=== PATIENT | female | born 1970 | race Caucasian/White ===

== ENCOUNTER → 2016-04-07 | Outpatient (CLI) | payer OTHER ==
[2016-01-25 13:36] VITALS: BP 133/85
[~2016-04-07] MED LIST: ACYC400T PO; BENZ200C39 PO; DEXT30CA6 PO; ESCI20TA10 PO; ESTR1TAB15 PO; HYDR-971 PO; LEVO100T PO; LEVO125T PO; LISI-334 PO; MELA3TAB PO; MELO-156 PO; NABU500T PO; NABU750T PO; ONDA4TAB10 PO; ORPH100T PO; OXYC30TA PO; PRED50TA PO; SERT100T PO; SUMA100T3 PO; TOPI25TA32 PO
--- NOTE | 2016-04-08 21:11 | EEG ---
DATE OF SERVICE: 04/07/2016 EEG NUMBER: [id number] OBJECTIVE: This is a 46-year-old female patient with history of memory loss and confusional episodes. EEG was requested to evaluate cerebral activity and help rule out subclinical seizure. METHODS: Twenty electrodes were applied according to the international 10-20 electrode placement system. EEG monitoring, hyperventilation, intermittent photic stimulation, monopolar and bipolar montages are routinely utilized. The record was obtained on a digital system with video monitoring. FINDINGS: 1. Background: The patient was recorded in the awake and drowsy states. No sleep state was recorded. The overall background amplitude is 10-13 microvolts. A posterior dominant rhythm of 8-10 Hz is observed. 2. Abnormalities: No specific epileptiform discharge or electrographic seizure is seen. No focal or diffuse slowing. 3. Activation: Hyperventilation was performed with good efforts and normal response. Intermittent photic stimulation was performed with photic driving. Photoparoxysmal response noted. IMPRESSION: This EEG is a borderline study for the awake and drowsy states. No sleep state was recorded. Photoparoxysmal response noted. No focal, lateralizing, specific epileptiform discharge, or electrographic seizure is seen. CAIT JONES MD DR: JOSIAS/sully JOB#: [id number] / [id number] KATHERINE
== END | disposition home or self-care (01) ==
LOC: RT 10:39
PROVIDERS: ATTEND Psychiatry & Neurology Neurology
DX: R41.3 Other amnesia (principal)
CPT/HCPCS: 95816

== ENCOUNTER 2016-04-15 12:33 | Observation (INO) | payer OTHER ==
[~2016-04-15] VITALS: Ht 170.2 cm; Wt 83.0 kg
[~2016-04-15 12:33] MED LIST changes: -ESTR1TAB15 PO; -LEVO125T PO; -LISI-334 PO; -MELA3TAB PO; -MELO-156 PO; -NABU500T PO; -SERT100T PO; -SUMA100T3 PO; -TOPI25TA32 PO
[2016-04-15 13:30] VITALS: BP 143/94
[2016-04-15 15:00] VITALS: BP 146/89
[2016-04-15] MEDS ORDERED: ONDANSETRON ODT 4 MG TAB.RAPDIS PO PRN (15:00)
[2016-04-15] MEDS ORDERED: HYDROCODONE/APAP 5/325MG TABLET. PO PRN (15:00)
[2016-04-15] MEDS ORDERED: HYDROMORPHONE 2 MG/ML VIAL. IVP PRN ×2 (15:00→15:30)
[2016-04-15] MEDS ORDERED: SUMATRIPTAN SUCCINATE 100 MG TABLET. PO PRN (15:00)
--- NOTE | 2016-04-15 15:23 | PDOC1 ---
History and Physical Date of Admission Date of Admission DATE: 04/15/16 TIME: 15:18 Identification/Chief Complaint Chief Complaint headache Source Source: Chart review, Patient History of Present Illness History of Present Illness sent from Neuro clinic for intractable headache was seen s/p fall in January, concussion, post-concussive syndrome, now with memory difficulties, She follows pain clinic [facility], has sent ENT, s/p barium swallow for neck fullness and sensation she has intractable headache, severe, cannot sit up, better lying flat, no photophobia, no phonophobia she thinks she think 2-3 headaches like this per week also complains of weight gain > 40 lbs few mnonts Past Medical History Cardiovascular: HTN Musculoskeletal: low back pain (and neck pain) ENT: No pertinent hx, Sincusitis Endocrine: No pertinent hx Dermatology: No pertinent hx Family History Family History: No Significant Social History Smoke: No ALCOHOL: none Drugs: None Current Medications Current Medications Current Medications Acetaminophen/ Hydrocodone Bitart (Lortab 5/325) 1 tab PRN Q6HRS PRN PO PAIN; Start 04/15/16 at 15:00 Levothyroxine Sodium (Synthroid) 100 mcg DAILY07 PO ; Start 04/16/16 at 07:00 Ondansetron HCl (Zofran Odt) 4 mg PRN Q8HRS PRN PO NAUSEA/VOMITING; Start at 15:00 Oxycodone HCl (Roxicodone) 30 mg QID PO ; Start 04/15/16 at 17:00 Non-Formulary Medication 1 tab BID PO ; Start 04/15/16 at 21:00; Status UNV Non-Formulary Medication 1 cap TID PO ; Start 04/15/16 at 21:00; Status UNV Non-Formulary Medication 1 cap DAILY PO ; Start 04/16/16 at 09:00; Status UNV Escitalopram Oxalate (Lexapro) 10 mg DAILY PO ; Start 04/15/16 at 16:00 Meloxicam (Mobic) 15 mg DAILY PO ; Start 04/15/16 at 16:00 Non-Formulary Medication 100 mg Q12HR PO ; Start 04/15/16 at 21:00; Status UNV Hydromorphone HCl (Dilaudid) 1 mg PRN Q4HRS PRN IVP PAIN SEVERE; Start 04/15/16 at 15:00 Sumatriptan Succinate (Imitrex) 100 mg PRN Q2HR PRN PO MIGRAINE HEADACHE; Start 04/15/16 at 15:00 Active Scripts Active Zofran Odt (Ondansetron) 4 Mg Tab.rapdis 4 Mg PO Q8HRS PRN Orphenadrine Citrate 100 Mg Tablet.er 100 Mg PO Q12HR [place] 5-325 Tablet (Acetaminophen/Hydrocodone Bitart) 1 Each Tablet 1 Tab PO PRN Q6HRS PRN Benzonatate 200 Mg Capsule 1 Cap PO TID Prednisone 50 Mg Tablet 1 Tab PO DAILY Reported Oxycodone Hcl 30 Mg Tablet 1 Tab PO QID Synthroid (Levothyroxine Sodium) 100 Mcg Tablet 1 Tab PO DAILY Nabumetone 750 Mg Tablet 1 Tab PO BID Acyclovir 400 Mg Tablet 1 Tab PO BID Lexapro (Escitalopram Oxalate) 20 Mg Tablet 1 Tab PO DAILY Adderall Xr 30 Mg Capsule (Dextroamphetamine/Amphetamine) 30 Mg Cap.er.24h 1 Cap PO DAILY Allergies Allergies: Coded Allergies: Tetracyclines (Verified Allergy, Intermediate, RASH, 04/04/15) ROS General: YES: Chills, Malaise, No: Appetite, Fatigue, Night Sweats, Other PSYCHOLOGICAL ROS: YES: Anxiety, Concentration difficultie, Irritablity, No: Behavioral Disorder, Decreased libido, Depression, Disorientation, Hallucinations, Hostility, Memory difficulties, Mood Swings, Obsessive thoughts , Other, Physical abuse, Sexual abuse, Sleep disturbances, Suicidal ideation Eyes: No Blurry vision, No Decreased vision, No Double vision, No Dry eyes, No Excessive tearing, No Eye Pain, No Itchy Eyes, No Loss of vision, No Other, No Photophobia, No Scotomata, No Uses contacts, No Uses glasses HEENT: YES: Other (globus, ), No: Epistaxis, Heacaches, Hearing change, Nasal congestion, Nasal discharge, Oral lesions, Sinus pain, Sneezing, Snoring, Sore Throat, Tinnitus, Vertigo, Visual Changes, Vocal changes Hematological and Lymphatic: No: Bleeding Problems, Blood Clots, Blood Transfusions, Brusing, Night Sweats, Other, Pallor, Swollen Lymph Nodes Respiratory: No: Cough, Hemoptysis, Orthopnea, Other, Pleuritic Pain, SOB with excertion, Shortness of breath, Sputum Changes, Stridor, Tachypnea, Wheezing Cardiovascular: No Chest Pain, No Edema, No Lt Headedness, No Orthopnea, No Other, No Palpitations, No Paroxysmal Noc. Dyspnea Gastrointestinal: Yes Nausea, No Abdominal Pain, No Constipation, No Diarrhea, No Hematochezia, No Melena, No Other, No Vomiting Genitourinary: No , No , No , No , No , No , No , No Discharge, No Dysuria, No Flank Pain, No Frequency, No Hematuria, No Incontinence, No Other, No Pain, No Retention, No Urgency Musculoskeletal: No Gait Disturbance, No Joint Pain, No Joint Stiffness, No Joint Swelling, No Muscle Pain, No Muscular Weakness, No Other, No Pain In:, No Swelling In: Neurological: Yes Confusion, Yes Gait Disturbance, Yes Headaches, Yes Impaired Coord/balance, Yes Memory Loss, No Behavorial Changes, No Bowel/Bladder ControlChng, No Dizziness, No Numbness/Tingling, No Other, No Seizures, No Speech Problems, No Tremors, No Visual Changes, No Weakness Skin: No Acne, No Dry Skin, No Eczema, No Hair Changes, No Lumps, No Mole Changes, No Mottling, No Nail Changes, No Other, No Pruritus, No Rash, No Skin Lesion Changes Physical Exam General: Alert, Oriented X3, Cooperative, mild distress HEENT: Atraumatic, PERRLA Lungs: Clear to auscultation Abdomen: Normal bowel sounds, Soft Rectal Exam: not examined Extremities: No clubbing, No edema Skin: No rashes, No significant lesion Neuro: Normal speech, Normal tone, Sensation intact Psych/Mental Status: Mood NL Vitals Vitals Vital Signs Date Time Temp Pulse Resp B/P Pulse Ox O2 Delivery O2 Flow Rate FiO2 04/15/16 15:00 98.2 72 18 146/89 97 Room Air 98.2 VTE Prophylaxis Ordered VTE Prophylaxis Devices: No VTE Pharmacological Prophylaxi: Yes Assessment/Plan Assessment/Plan intractable headache recent EEG, pending neuro consult try tryptan Percocet PRN new memory problems, concern for anxiety and depression, post concussive syndrome labs RUSSELL FISHER MD Apr 15, 2016 15:23
[2016-04-15 15:31] LABS: BASO % 1 % (0-3); EOS % 1 % (0-3); HEMATOCRIT 42.4 % (36.0-47.0); HEMOGLOBIN 13.9 g/dL (12.0-15.5); LYMPH # 1.4 x10^3/uL (1.0-4.8); LYMPH % 19 % (24-48); MEAN CORPUSCULAR HEMOGLOBIN 29 pg (25-35); MEAN CORPUSCULAR HGB CONC 33 g/dL (31-37); MEAN CORPUSCULAR VOLUME 87 fL (79-100); MONO % 4 % (0-9); NEUT % 75 % (31-73); PLATELET COUNT 263 x10^3/uL (140-400); RED BLOOD COUNT 4.86 x10^6/uL (3.50-5.40); RED CELL DISTRIBUTION WIDTH 14.5 % (11.5-14.5); WHITE BLOOD COUNT 7.1 x10^3/uL (4.0-11.0)
[2016-04-15 15:55] LABS: ALBUMIN 3.8 g/dL (3.4-5.0); ALBUMIN/GLOBULIN RATIO 0.9 (1.0-1.7); CALCIUM 9.4 mg/dL (8.5-10.1); CREATININE 0.7 mg/dL (0.6-1.0); GFR 89.3; POTASSIUM 3.6 mmol/L (3.5-5.1); TOTAL BILIRUBIN 0.5 mg/dL (0.2-1.0); TOTAL PROTEIN 7.9 g/dL (6.4-8.2)
[2016-04-15] MEDS ORDERED: MELOXICAM 7.5 MG TABLET PO SCH (16:00)
[2016-04-15] MEDS ORDERED: ESCITALOPRAM 10 MG TABLET. PO SCH (16:00)
[2016-04-15] MEDS ORDERED: METOPROLOL SUCC 24HR ER 25 MG TAB.ER.24H. PO SCH (16:00)
[2016-04-15] MEDS ORDERED: ZOLPIDEM 5 MG TABLET. PO PRN (16:45)
[2016-04-15] MEDS ORDERED: OXYCODONE IR 30 MG TABLET. PO SCH (17:00)
[2016-04-15 18:13] LABS: BARBITURATES NEG (NEG); BENZODIAZEPINES NEG (NEG); CANNABINOIDS NEG (NEG); COCAINE NEG (NEG); METHADONE NEG (NEG); OPIATES NEG (NEG); PHENCYCLIDINE NEG (NEG)
--- NOTE | 2016-04-15 18:14 | PDOC2 ---
NEUROLOGY CONSULT Date of Admission Date of Admission DATE: 04/15/16 TIME: 18:06 Reason for Consult Reason for Consult: IMPRESSION: Intractable migraine headache. HTN Chronic back pain. Memory decline. RECOMMENDATIONS/PLAN: Pain control. Metoprolol 25 mg daily. Topamax 25 mg bid with titration up. Brain MRI w/wo contrast. HISTORY OF THE PRESENT ILLNESS: 46-y-old female patient with Hx of chronic migraine headaches was seen in Neurology Clinic several weeks ago with complaints of chronic headaches and memory decline. Cognitive evaluation was carried out. She returned to Neurology Clinic today with complaints of severe headaches stating 2 times a week as sharp pain in her entire head rated 10/10. PAST MEDICAL HISTORY: Please see above. PAST SURGERY HISTORY: No major surgery recently. ALLERGY: Reviewed. MEDICATIONS: Refer to [facility] FAMILY HISTORY: Non contributory. SOCIAL HISTORY: Lives at home. Denies illicit drug use. REVIEW OF SYSTEMS: Constitutional: No malnutrition, weight loss, cachexia. Head: No traumatic brain or head injury. Skin: No edema, or rash. Ear: No infection, tinnitus. Eyes: No vision loss or color blindness. Nose: No bleeding or purulent discharges. Hearing: No hearing decrease. Neck: No injury. Breast: No history of cancer, masses,or discharges. Cardiac: No [place], arrhythmia Pulmonary: No COPD. GI: No GI ulcer, GI bleeding. Urinary/genital: NUTI. Endocrinologic: No cousin face, craniofacial dysmorphism, polydactyly, goiter. Skeletomuscular: No muscular atrophy, deformity. Neurological: see HP. Psychiatric: Denies drug use/abuse. Otherwise, not [id number] review of systems. PHYSICAL EXAMINATION: General appearance is in acute distress. HEENT: Normocephalic and nontraumatic. Eyes, nose, ears, and throat are unremarkable. Neck is supple. No lymphadenopathy. No bruits are heard over the carotid artery. No crepitus. Cardiovascular: S1, S2, regular rate and rhythm. Pulmonary: Clear to auscultation bilaterally. Abdomen: Bowel sounds are positive. Abdomen is soft, nontender, and nondistended. Extremities: No rash, lesions, or edema. No restriction of range of motion NEUROLOGICAL EXAMINATION: Alert Oriented to time, place and person. PERRL. EOMI. CN: no focal findings. Muscle tone: within normal. Muscle strength: 5 DTR: 2 Plantar reflex: Flexor response bilaterally Gait: At baseline normal. Sensory exam: no abnormal findings. No cerebellar signs elicited. F-T-N test accurate. Current Medications Current Medications Current Medications Acetaminophen/ Hydrocodone Bitart (Lortab 5/325) 1 tab PRN Q6HRS PRN PO PAIN; Start 04/15/16 at 15:00 Levothyroxine Sodium (Synthroid) 100 mcg DAILY07 PO ; Start 04/16/16 at 07:00 Ondansetron HCl (Zofran Odt) 4 mg PRN Q8HRS PRN PO NAUSEA/VOMITING; Start at 15:00 Oxycodone HCl (Roxicodone) 30 mg QID PO ; Start 04/15/16 at 17:00; Stop 04/15/16 at 17:00; Status DC Acyclovir (Zovirax) 400 mg BID PO ; Start 04/15/16 at 21:00 Non-Formulary Medication 1 cap TID PO ; Start 04/15/16 at 21:00; Status UNV Non-Formulary Medication 1 cap DAILY PO ; Start 04/16/16 at 09:00; Status UNV Escitalopram Oxalate (Lexapro) 10 mg DAILY PO ; Start 04/15/16 at 16:00 Meloxicam (Mobic) 15 mg DAILY PO ; Start 04/15/16 at 16:00 Non-Formulary Medication 100 mg Q12HR PO ; Start 04/15/16 at 21:00; Status UNV Hydromorphone HCl (Dilaudid) 1 mg PRN Q4HRS PRN IVP PAIN SEVERE; Start 04/15/16 at 15:00; Stop 04/15/16 at 15:18; Status DC Sumatriptan Succinate (Imitrex) 100 mg PRN Q2HR PRN PO MIGRAINE HEADACHE Last administered on 04/15/16t 16:31; Start 04/15/16 at 15:00 Hydromorphone HCl (Dilaudid) 0.8 mg PRN Q4HRS PRN IVP PAIN SEVERE; Start at 15:30 Topiramate (Topamax) 25 mg BID PO ; Start 04/15/16 at 21:00 Metoprolol Succinate (Toprol Xl) 25 mg DAILY PO ; Start 04/15/16 at 16:00 Trazodone HCl (Desyrel) 50 mg QHS PO ; Start 04/15/16 at 21:00 Zolpidem Tartrate (Ambien) 5 mg PRN QHS PRN PO INSOMNIA, MAY REPEAT IN 1HR; Start 04/15/16 at 16:45 Active Scripts Active Zofran Odt (Ondansetron) 4 Mg Tab.rapdis 4 Mg PO Q8HRS PRN Orphenadrine Citrate 100 Mg Tablet.er 100 Mg PO Q12HR [place] 5-325 Tablet (Acetaminophen/Hydrocodone Bitart) 1 Each Tablet 1 Tab PO PRN Q6HRS PRN Benzonatate 200 Mg Capsule 1 Cap PO TID Prednisone 50 Mg Tablet 1 Tab PO DAILY Reported Oxycodone Hcl 30 Mg Tablet 1 Tab PO QID Synthroid (Levothyroxine Sodium) 100 Mcg Tablet 1 Tab PO DAILY Nabumetone 750 Mg Tablet 1 Tab PO BID Acyclovir 400 Mg Tablet 1 Tab PO BID Lexapro (Escitalopram Oxalate) 20 Mg Tablet 1 Tab PO DAILY Adderall Xr 30 Mg Capsule (Dextroamphetamine/Amphetamine) 30 Mg Cap.er.24h 1 Cap PO DAILY Allergies Allergies: Coded Allergies: Tetracyclines (Verified Allergy, Intermediate, RASH, 04/04/15) Vitals VITALS Vital Signs Date Time Temp Pulse Resp B/P Pulse Ox O2 Delivery O2 Flow Rate FiO2 04/15/16 15:00 98.2 72 18 146/89 97 Room Air 98.2 Labs Labs Laboratory Tests Test 04/15/16 15:20 White Blood Count 7.1x10^3/uL (4.0-11.0) Red Blood Count 4.86x10^6/uL (3.50-5.40) Hemoglobin 13.9g/dL (12.0-15.5) Hematocrit 42.4% (36.0-47.0) Mean Corpuscular Volume 87fL (79-100) Mean Corpuscular Hemoglobin 29pg (25-35) Mean Corpuscular Hemoglobin Concent 33g/dL (31-37) Red Cell Distribution Width 14.5% (11.5-14.5) Platelet Count 263x10^3/uL (140-400) Neutrophils (%) (Auto) 75% (31-73) Lymphocytes (%) (Auto) 19% (24-48) Monocytes (%) (Auto) 4% (0-9) Eosinophils (%) (Auto) 1% (0-3) Basophils (%) (Auto) 1% (0-3) Neutrophils # (Auto) 5.3x10^3uL (1.8-7.7) Lymphocytes # (Auto) 1.4x10^3/uL (1.0-4.8) Monocytes # (Auto) 0.3x10^3/uL (0.0-1.1) Eosinophils # (Auto) 0.0x10^3/uL (0.0-0.7) Basophils # (Auto) 0.0x10^3/uL (0.0-0.2) Erythrocyte Sedimentation Rate 15 (0-25) Sodium Level 141mmol/L (136-145) Potassium Level 3.6mmol/L (3.5-5.1) Chloride Level 103mmol/L (98-107) Carbon Dioxide Level 30mmol/L (21-32) Anion Gap 8 (6-14) Blood Urea Nitrogen 19mg/dL (7-20) Creatinine 0.7mg/dL (0.6-1.0) Estimated GFR (Cockcroft-Gault) 89.3 BUN/Creatinine Ratio 27 (6-20) Glucose Level 133mg/dL (70-99) Calcium Level 9.4mg/dL (8.5-10.1) Total Bilirubin 0.5mg/dL (0.2-1.0) Aspartate Amino Transf (AST/SGOT) 15U/L (15-37) Alanine Aminotransferase (ALT/SGPT) 21U/L (14-59) Alkaline Phosphatase 74U/L (46-116) Total Protein 7.9g/dL (6.4-8.2) Albumin 3.8g/dL (3.4-5.0) Albumin/Globulin Ratio 0.9 (1.0-1.7) Laboratory Tests Test 04/15/16 15:20 White Blood Count 7.1x10^3/uL (4.0-11.0) Red Blood Count 4.86x10^6/uL (3.50-5.40) Hemoglobin 13.9g/dL (12.0-15.5) Hematocrit 42.4% (36.0-47.0) Mean Corpuscular Volume 87fL (79-100) Mean Corpuscular Hemoglobin 29pg (25-35) Mean Corpuscular Hemoglobin Concent 33g/dL (31-37) Red Cell Distribution Width 14.5% (11.5-14.5) Platelet Count 263x10^3/uL (140-400) Neutrophils (%) (Auto) 75% (31-73) Lymphocytes (%) (Auto) 19% (24-48) Monocytes (%) (Auto) 4% (0-9) Eosinophils (%) (Auto) 1% (0-3) Basophils (%) (Auto) 1% (0-3) Neutrophils # (Auto) 5.3x10^3uL (1.8-7.7) Lymphocytes # (Auto) 1.4x10^3/uL (1.0-4.8) Monocytes # (Auto) 0.3x10^3/uL (0.0-1.1) Eosinophils # (Auto) 0.0x10^3/uL (0.0-0.7) Basophils # (Auto) 0.0x10^3/uL (0.0-0.2) Erythrocyte Sedimentation Rate 15 (0-25) Sodium Level 141mmol/L (136-145) Potassium Level 3.6mmol/L (3.5-5.1) Chloride Level 103mmol/L (98-107) Carbon Dioxide Level 30mmol/L (21-32) Anion Gap 8 (6-14) Blood Urea Nitrogen 19mg/dL (7-20) Creatinine 0.7mg/dL (0.6-1.0) Estimated GFR (Cockcroft-Gault) 89.3 BUN/Creatinine Ratio 27 (6-20) Glucose Level 133mg/dL (70-99) Calcium Level 9.4mg/dL (8.5-10.1) Total Bilirubin 0.5mg/dL (0.2-1.0) Aspartate Amino Transf (AST/SGOT) 15U/L (15-37) Alanine Aminotransferase (ALT/SGPT) 21U/L (14-59) Alkaline Phosphatase 74U/L (46-116) Total Protein 7.9g/dL (6.4-8.2) Albumin 3.8g/dL (3.4-5.0) Albumin/Globulin Ratio 0.9 (1.0-1.7) CAIT JONES MD Apr 15, 2016 18:14
[2016-04-15 18:15] LABS: ETHANOL, URINE NEG (NEG)
[2016-04-15 19:00] VITALS: BP 127/78
[2016-04-15] MEDS ORDERED: NABU500T PO (19:49)
[2016-04-15] MEDS ORDERED: LISI-334 PO (19:49)
[2016-04-15] MEDS ORDERED: LEVO125T PO (19:49)
[2016-04-15] MEDS ORDERED: SERT100T PO (19:49)
[2016-04-15] MEDS ORDERED: ESTR1TAB15 PO (19:49)
[2016-04-15] MEDS ORDERED: MELA3TAB PO (19:49)
[2016-04-15] MEDS ORDERED: GADOBUTROL 7.5 MMOL/7.5 ML VIAL IV ONE (20:00)
[2016-04-15] MEDS ORDERED: traZODone 50 MG TABLET. PO SCH (21:00)
[2016-04-15] MEDS ORDERED: BENZONATATE PO SCH (21:00)
[2016-04-15] MEDS ORDERED: ACYCLOVIR 200 MG CAPSULE PO SCH (21:00)
[2016-04-15] MEDS ORDERED: NON FORMULARY ITEM (Orphenadrine Citrate 100 MG) PO SCH (21:00)
[2016-04-15] MEDS ORDERED: NABUMETONE PO SCH (21:00)
[2016-04-15] MEDS: TOPIRAMATE 25 MG TABLET. PO SCH (21:49)
[2016-04-15 23:00] VITALS: BP 120/74
[2016-04-15] MEDS: ESTRADIOL 1 MG TABLET PO SCH (23:33)
[2016-04-15] MEDS: LISINOPRIL 20 MG TABLET PO SCH (23:34)
[2016-04-15] MEDS: MELOXICAM 7.5 MG TABLET PO SCH (23:34)
[2016-04-16 03:00] VITALS: BP 108/72
[2016-04-16 07:00] VITALS: BP 111/84
[2016-04-16] MEDS ORDERED: LEVOTHYROXINE 100 MCG TABLET PO SCH (07:00)
[2016-04-16] MEDS ORDERED: LEVOTHYROXINE 125 MCG TABLET PO SCH ×2 (07:00→09:00)
--- NOTE | 2016-04-16 08:11 | RAD ---
PROCEDURE Brain MRI with and without contrast. HISTORY Headaches. TECHNIQUE Multiplanar and multi sequence magnetic resonance imaging of the brain was performed prior to and following the administration of 7.5 cc Gadavist intravenous contrast. COMPARISON Head CT dated 01/25/2016. FINDINGS There is no restricted diffusion to suggest acute or subacute infarction. There is no susceptibility effect to suggest hemorrhage. There is no mass effect or midline shift. There is no hydrocephalus. There are a few small focal areas of T2/FLAIR hyperintensity within the cerebral white matter, a nonspecific finding. The orbits are unremarkable. There is a tiny right maxillary sinus mucous retention cyst. The mastoid air cells are unremarkable. There are normal flow voids within the cerebral vessels. No enhancing lesion is seen. IMPRESSION 1. No acute intracranial finding. 2. Few scattered foci of signal change within the cerebral white matter, a nonspecific finding. Given the patient history, this may be due to chronic migraine headaches. The differential also includes chronic small vessel disease. The lesion distribution and configuration does not suggest demyelinating disease. Electronically signed by: Sarai Rosen (Apr 16, 2016 08:09:55)
[2016-04-16] MEDS ORDERED: NON FORMULARY ITEM (Dextroamphetamine/Amphetamine (Adderall Xr 30 Mg Capsule) 1 CAP) PO SCH (09:00)
[2016-04-16] MEDS ORDERED: ACYCLOVIR 200 MG CAPSULE PO SCH (09:00)
[2016-04-16] MEDS ORDERED: LISINOPRIL 20 MG TABLET PO SCH (09:00)
[2016-04-16] MEDS ORDERED: SERTRALINE 50 MG TABLET. PO SCH (09:00)
[2016-04-16] MEDS ORDERED: ESTRADIOL 1 MG TABLET PO SCH (09:00)
[2016-04-16] MEDS: MELOXICAM 7.5 MG TABLET PO SCH (09:51)
[2016-04-16] MEDS: TOPIRAMATE 25 MG TABLET. PO SCH (09:52)
[2016-04-16] MEDS ORDERED: POTASSIUM CHLORIDE 20 MEQ TABLET.ER. PO ONE (10:00)
[2016-04-16 11:00] VITALS: BP 101/73
[2016-04-16] MEDS ORDERED: SUMA100T3 PO (12:18)
[2016-04-16] MEDS ORDERED: MELO-156 PO (12:18)
[2016-04-16] MEDS ORDERED: TOPI25TA32 PO (12:18)
--- NOTE | 2016-04-16 12:22 | PDOC3 ---
Discharge Summary Visit Information Date of Admission: Apr 15, 2016 Date of Discharge: Apr 16, 2016 Admitting Diagnosis: headache Final Diagnosis intractable headache, migranous HTN Chronic back pain. Memory decline. anxiety and depression, recent Hx post concussive syndrome Problems Medical Problems: (1) ? Bipolar disorder Status: Acute (2) Head contusion Status: Acute (3) Migraine headache Status: Acute Brief Hospital Course Allergies Allergies Coded Allergies Type Severity Reaction Last Updated Verified Tetracyclines Allergy Intermediate RASH 04/04/15 Yes Vital Signs Vital Signs Date Time Temp Pulse Resp B/P Pulse Ox O2 Delivery O2 Flow Rate FiO2 04/16/16 11:00 98.0 73 18 101/73 95 Room Air 98.0 Lab Results Laboratory Tests Test 04/15/16 15:20 04/15/16 17:55 White Blood Count 7.1x10^3/uL (4.0-11.0) Red Blood Count 4.86x10^6/uL (3.50-5.40) Hemoglobin 13.9g/dL (12.0-15.5) Hematocrit 42.4% (36.0-47.0) Mean Corpuscular Volume 87fL (79-100) Mean Corpuscular Hemoglobin 29pg (25-35) Mean Corpuscular Hemoglobin Concent 33g/dL (31-37) Red Cell Distribution Width 14.5% (11.5-14.5) Platelet Count 263x10^3/uL (140-400) Neutrophils (%) (Auto) 75% (31-73) Lymphocytes (%) (Auto) 19% (24-48) Monocytes (%) (Auto) 4% (0-9) Eosinophils (%) (Auto) 1% (0-3) Basophils (%) (Auto) 1% (0-3) Neutrophils # (Auto) 5.3x10^3uL (1.8-7.7) Lymphocytes # (Auto) 1.4x10^3/uL (1.0-4.8) Monocytes # (Auto) 0.3x10^3/uL (0.0-1.1) Eosinophils # (Auto) 0.0x10^3/uL (0.0-0.7) Basophils # (Auto) 0.0x10^3/uL (0.0-0.2) Erythrocyte Sedimentation Rate 15 (0-25) Sodium Level 141mmol/L (136-145) Potassium Level 3.6mmol/L (3.5-5.1) Chloride Level 103mmol/L (98-107) Carbon Dioxide Level 30mmol/L (21-32) Anion Gap 8 (6-14) Blood Urea Nitrogen 19mg/dL (7-20) Creatinine 0.7mg/dL (0.6-1.0) Estimated GFR (Cockcroft-Gault) 89.3 BUN/Creatinine Ratio 27 (6-20) Glucose Level 133mg/dL (70-99) Calcium Level 9.4mg/dL (8.5-10.1) Total Bilirubin 0.5mg/dL (0.2-1.0) Aspartate Amino Transf (AST/SGOT) 15U/L (15-37) Alanine Aminotransferase (ALT/SGPT) 21U/L (14-59) Alkaline Phosphatase 74U/L (46-116) Total Protein 7.9g/dL (6.4-8.2) Albumin 3.8g/dL (3.4-5.0) Albumin/Globulin Ratio 0.9 (1.0-1.7) Urine Opiates Screen Neg (NEG) Urine Methadone Screen Neg (NEG) Urine Barbiturates Neg (NEG) Urine Phencyclidine Screen Neg (NEG) Urine Amphetamine/Methamphetamine Neg (NEG) Urine Benzodiazepines Screen Neg (NEG) Urine Cocaine Screen Neg (NEG) Urine Cannabinoids Screen Neg (NEG) Urine Ethyl Alcohol Neg (NEG) Laboratory Tests Test 04/15/16 15:20 04/15/16 17:55 White Blood Count 7.1x10^3/uL (4.0-11.0) Red Blood Count 4.86x10^6/uL (3.50-5.40) Hemoglobin 13.9g/dL (12.0-15.5) Hematocrit 42.4% (36.0-47.0) Mean Corpuscular Volume 87fL (79-100) Mean Corpuscular Hemoglobin 29pg (25-35) Mean Corpuscular Hemoglobin Concent 33g/dL (31-37) Red Cell Distribution Width 14.5% (11.5-14.5) Platelet Count 263x10^3/uL (140-400) Neutrophils (%) (Auto) 75% (31-73) Lymphocytes (%) (Auto) 19% (24-48) Monocytes (%) (Auto) 4% (0-9) Eosinophils (%) (Auto) 1% (0-3) Basophils (%) (Auto) 1% (0-3) Neutrophils # (Auto) 5.3x10^3uL (1.8-7.7) Lymphocytes # (Auto) 1.4x10^3/uL (1.0-4.8) Monocytes # (Auto) 0.3x10^3/uL (0.0-1.1) Eosinophils # (Auto) 0.0x10^3/uL (0.0-0.7) Basophils # (Auto) 0.0x10^3/uL (0.0-0.2) Erythrocyte Sedimentation Rate 15 (0-25) Sodium Level 141mmol/L (136-145) Potassium Level 3.6mmol/L (3.5-5.1) Chloride Level 103mmol/L (98-107) Carbon Dioxide Level 30mmol/L (21-32) Anion Gap 8 (6-14) Blood Urea Nitrogen 19mg/dL (7-20) Creatinine 0.7mg/dL (0.6-1.0) Estimated GFR (Cockcroft-Gault) 89.3 BUN/Creatinine Ratio 27 (6-20) Glucose Level 133mg/dL (70-99) Calcium Level 9.4mg/dL (8.5-10.1) Total Bilirubin 0.5mg/dL (0.2-1.0) Aspartate Amino Transf (AST/SGOT) 15U/L (15-37) Alanine Aminotransferase (ALT/SGPT) 21U/L (14-59) Alkaline Phosphatase 74U/L (46-116) Total Protein 7.9g/dL (6.4-8.2) Albumin 3.8g/dL (3.4-5.0) Albumin/Globulin Ratio 0.9 (1.0-1.7) Urine Opiates Screen Neg (NEG) Urine Methadone Screen Neg (NEG) Urine Barbiturates Neg (NEG) Urine Phencyclidine Screen Neg (NEG) Urine Amphetamine/Methamphetamine Neg (NEG) Urine Benzodiazepines Screen Neg (NEG) Urine Cocaine Screen Neg (NEG) Urine Cannabinoids Screen Neg (NEG) Urine Ethyl Alcohol Neg (NEG) Brief Hospital Course Ms. Foreman is a 46 old sent from Neuro clinic for intractable headache was seen s/p fall in January, concussion, post-concussive syndrome, now with memory difficulties, [place] better s/p imitrex topamax started, will titrate up MRI OK, some small white matter changes, maybe microvascular dz Discharge Information Condition at Discharge: Improved Follow Up: Weeks Disposition/Orders: D/C to Home Scheduled Acyclovir (Acyclovir) 1 TAB PO DAILY (Reported) Estradiol (Estradiol) 1 TAB PO DAILY (Reported) Levothyroxine Sodium (Synthroid) 1 TAB PO DAILY (Reported) Lisinopril (Lisinopril) 1 TAB PO DAILY (Reported) Nabumetone (Nabumetone) 400 MG PO BID (Reported) Sertraline Hcl (Zoloft) 1 TAB PO DAILY (Reported) Scheduled PRN Melatonin (Melatonin) 1 TAB PO PRN QHS PRN PRN INSOMNIA (Reported) Patient Instructions Patient Instructions time > 30 min f/u Dr. Thomas, she will titrate up the topamax RUSSELL FISHER MD Apr 16, 2016 12:22
[2016-04-16] MEDS: ESTRADIOL 1 MG TABLET PO SCH (12:50)
[2016-04-16 12:51] VITALS: BP 103/73
[2016-04-16] MEDS: LISINOPRIL 20 MG TABLET PO SCH (12:51)
--- NOTE | 2016-04-16 14:54 | PDOC ---
PROGRESS NOTES Assessment Assessment Intractable migraine headache. HTN Chronic neck and back pain. Memory decline. RECOMMENDATIONS/PLAN: Pain control. Metoprolol 25 mg daily. Topamax 25 mg bid week1, 25 mg am and 50 mg pm week 2, 50 mg bid thereafter. FU with PCP. See Dr Haynes, outpatient [place]. FU with neurology in 4-6 weeks. Brain MRI w/wo contrast. No acute abnormal findings. HISTORY OF THE PRESENT ILLNESS: 46-y-old female patient with Hx of chronic migraine headaches was seen in Neurology Clinic several weeks ago with complaints of chronic headaches and memory decline. Cognitive evaluation was carried out. She returned to Neurology Clinic today with complaints of severe headaches stating 2 times a week as sharp pain in her entire head rated 10/10. Headaches significantly improved on 04/16. PAST MEDICAL HISTORY: Please see above. PAST SURGERY HISTORY: No major surgery recently. ALLERGY: Reviewed. MEDICATIONS: Refer to [facility] FAMILY HISTORY: Non contributory. SOCIAL HISTORY: Lives at home. Denies illicit drug use. REVIEW OF SYSTEMS: Constitutional: No malnutrition, weight loss, cachexia. Head: No traumatic brain or head injury. Skin: No edema, or rash. Ear: No infection, tinnitus. Eyes: No vision loss or color blindness. Nose: No bleeding or purulent discharges. Hearing: No hearing decrease. Neck: No injury. Breast: No history of cancer, masses,or discharges. Cardiac: No IL, arrhythmia Pulmonary: No COPD. GI: No GI ulcer, GI bleeding. Urinary/genital: NUTI. Endocrinologic: No cousin face, craniofacial dysmorphism, polydactyly, goiter. Skeletomuscular: No muscular atrophy, deformity. Neurological: see HP. Psychiatric: Denies drug use/abuse. Otherwise, not [id number] review of systems. PHYSICAL EXAMINATION: General appearance is in no acute distress. HEENT: Normocephalic and nontraumatic. Eyes, nose, ears, and throat are unremarkable. Neck is supple. No lymphadenopathy. No bruits are heard over the carotid artery. No crepitus. Cardiovascular: S1, S2, regular rate and rhythm. Pulmonary: Clear to auscultation bilaterally. Abdomen: Bowel sounds are positive. Abdomen is soft, nontender, and nondistended. Extremities: No rash, lesions, or edema. No restriction of range of motion NEUROLOGICAL EXAMINATION: Alert Oriented to time, place and person. PERRL. EOMI. CN: no focal findings. Muscle tone: within normal. Muscle strength: 5 DTR: 2 Plantar reflex: Flexor response bilaterally Gait: At baseline normal. Sensory exam: no abnormal findings. No cerebellar signs elicited. F-T-N test accurate. Objective Objective Vital Signs Date Time Temp Pulse Resp B/P Pulse Ox O2 Delivery O2 Flow Rate FiO2 04/16/16 12:51 73 103/73 04/16/16 11:00 98.0 18 95 Room Air 98.0 Intake and Output 04/16/16 07:00 Intake Total 1000 ml Output Total 1450 ml Balance -450 ml Intake Oral 1000 ml Output Urine Total 1450 ml Vitals Signs Vitals VS - Last 72 Hours, by Label Date Time Temp Pulse Resp B/P Pulse Ox O2 Delivery O2 Flow Rate FiO2 04/16/16 12:51 73 103/73 04/16/16 11:00 98.0 73 18 101/73 95 Room Air 98.0 04/16/16 07:00 98.2 69 18 111/84 96 Room Air 98.2 04/16/16 03:00 98.1 79 18 108/72 95 Room Air 98.1 04/15/16 23:34 120/74 04/15/16 23:00 98.0 73 18 120/74 96 Room Air 98.0 04/15/16 20:00 Room Air 04/15/16 19:00 98.1 71 17 127/78 94 Room Air 98.1 04/15/16 15:00 98.2 72 18 146/89 97 Room Air 98.2 04/15/16 14:00 Room Air 04/15/16 13:30 98.0 68 20 143/94 99 Room Air 98.0 04/15/16 13:30 98.0 68 20 143/94 99 Room Air 98.0 Laboratory Laboratory Laboratory Tests Test 04/15/16 15:20 04/15/16 17:55 White Blood Count 7.1x10^3/uL (4.0-11.0) Red Blood Count 4.86x10^6/uL (3.50-5.40) Hemoglobin 13.9g/dL (12.0-15.5) Hematocrit 42.4% (36.0-47.0) Mean Corpuscular Volume 87fL (79-100) Mean Corpuscular Hemoglobin 29pg (25-35) Mean Corpuscular Hemoglobin Concent 33g/dL (31-37) Red Cell Distribution Width 14.5% (11.5-14.5) Platelet Count 263x10^3/uL (140-400) Neutrophils (%) (Auto) 75% (31-73) Lymphocytes (%) (Auto) 19% (24-48) Monocytes (%) (Auto) 4% (0-9) Eosinophils (%) (Auto) 1% (0-3) Basophils (%) (Auto) 1% (0-3) Neutrophils # (Auto) 5.3x10^3uL (1.8-7.7) Lymphocytes # (Auto) 1.4x10^3/uL (1.0-4.8) Monocytes # (Auto) 0.3x10^3/uL (0.0-1.1) Eosinophils # (Auto) 0.0x10^3/uL (0.0-0.7) Basophils # (Auto) 0.0x10^3/uL (0.0-0.2) Erythrocyte Sedimentation Rate 15 (0-25) Sodium Level 141mmol/L (136-145) Potassium Level 3.6mmol/L (3.5-5.1) Chloride Level 103mmol/L (98-107) Carbon Dioxide Level 30mmol/L (21-32) Anion Gap 8 (6-14) Blood Urea Nitrogen 19mg/dL (7-20) Creatinine 0.7mg/dL (0.6-1.0) Estimated GFR (Cockcroft-Gault) 89.3 BUN/Creatinine Ratio 27 (6-20) Glucose Level 133mg/dL (70-99) Calcium Level 9.4mg/dL (8.5-10.1) Total Bilirubin 0.5mg/dL (0.2-1.0) Aspartate Amino Transf (AST/SGOT) 15U/L (15-37) Alanine Aminotransferase (ALT/SGPT) 21U/L (14-59) Alkaline Phosphatase 74U/L (46-116) Total Protein 7.9g/dL (6.4-8.2) Albumin 3.8g/dL (3.4-5.0) Albumin/Globulin Ratio 0.9 (1.0-1.7) Urine Opiates Screen Neg (NEG) Urine Methadone Screen Neg (NEG) Urine Barbiturates Neg (NEG) Urine Phencyclidine Screen Neg (NEG) Urine Amphetamine/Methamphetamine Neg (NEG) Urine Benzodiazepines Screen Neg (NEG) Urine Cocaine Screen Neg (NEG) Urine Cannabinoids Screen Neg (NEG) Urine Ethyl Alcohol Neg (NEG) Medication Medications Current Medications Acetaminophen/ Hydrocodone Bitart (Lortab 5/325) 1 tab PRN Q6HRS PRN PO PAIN; Start 04/15/16 at 15:00 Acyclovir (Zovirax) 400 mg BID PO ; Start 04/15/16 at 21:00; Stop 04/15/16 at 22: 16; Status DC Acyclovir (Zovirax) 400 mg DAILY PO Last administered on 04/16/16 09:52; Start 04/16/16 at 09:00 Escitalopram Oxalate (Lexapro) 10 mg DAILY PO ; Start 04/15/16 at 16:00; Stop 04/15/16 at 19:55; Status DC Estradiol (Estrace) 1 mg DAILY PO ; Start 04/16/16 at 09:00; Stop 04/16/16 at 09: 00; Status DC Estradiol (Estrace) 1 mg DAILYWLUN PO Last administered on 04/16/16 12:50; Start 04/15/16 at 22:30 Gadobutrol (Gadavist) 7.5 mmol 1X ONCE IV Last administered on 04/15/16 20:09 ; Start 04/15/16 at 20:00; Stop 04/15/16 at 20:01; Status DC Hydromorphone HCl (Dilaudid) 0.8 mg PRN Q4HRS PRN IVP PAIN SEVERE; Start at 15:30 Hydromorphone HCl (Dilaudid) 1 mg PRN Q4HRS PRN IVP PAIN SEVERE; Start 04/15/16 at 15:00; Stop 04/15/16 at 15:18; Status DC Levothyroxine Sodium (Synthroid) 100 mcg DAILY07 PO ; Start 04/16/16 at 07:00; Status Cancel Levothyroxine Sodium (Synthroid) 125 mcg DAILY PO ; Start 04/16/16 at 09:00; Stop 04/16/16 at 09:00; Status DC Levothyroxine Sodium (Synthroid) 125 mcg DAILY07 PO Last administered on 06:21; Start 04/16/16 at 07:00 Lisinopril (Prinivil) 20 mg DAILY PO ; Start 04/16/16 at 09:00; Stop 04/16/16 at 09:00; Status DC Lisinopril (Prinivil) 20 mg DAILYWLUN PO Last administered on 04/16/16 12:51; Start 04/15/16 at 22:30 Meloxicam (Mobic) 15 mg BID94 PO Last administered on 04/16/16 09:51; Start 04/15/16 at 22:30 Meloxicam (Mobic) 15 mg DAILY PO ; Start 04/15/16 at 16:00; Stop 04/15/16 at 22:16 ; Status DC Metoprolol Succinate (Toprol Xl) 25 mg DAILY PO ; Start 04/15/16 at 16:00; Stop 04/15/16 at 19:55; Status DC Non-Formulary Medication 1 cap DAILY PO ; Start 04/16/16 at 09:00; Status UNV Non-Formulary Medication 1 cap TID PO ; Start 04/15/16 at 21:00; Status UNV Non-Formulary Medication 100 mg Q12HR PO ; Start 04/15/16 at 21:00; Status UNV Non-Formulary Medication 400 mg BID PO ; Start 04/15/16 at 21:00; Status UNV Ondansetron HCl (Zofran Odt) 4 mg PRN Q8HRS PRN PO NAUSEA/VOMITING; Start at 15:00 Oxycodone HCl (Roxicodone) 30 mg QID PO ; Start 04/15/16 at 17:00; Stop 04/15/16 at 17:00; Status DC Potassium Chloride (Klor-Con) 20 meq 1X ONCE PO Last administered on 04/16/16 12:50; Start 04/16/16 at 10:00; Stop 04/16/16 at 10:14; Status DC Sertraline HCl (Zoloft) 100 mg DAILY PO Last administered on 04/16/16 09:51; Start 04/16/16 at 09:00 Sumatriptan Succinate (Imitrex) 100 mg PRN Q2HR PRN PO MIGRAINE HEADACHE Last administered on 04/15/16 16:31; Start 04/15/16 at 15:00 Topiramate (Topamax) 25 mg BID PO Last administered on 04/16/16 09:52; Start at 21:00 Trazodone HCl (Desyrel) 50 mg QHS PO Last administered on 04/15/16 21:49; Start 04/15/16 at 21:00 Zolpidem Tartrate (Ambien) 5 mg PRN QHS PRN PO INSOMNIA, MAY REPEAT IN 1HR; Start 04/15/16 at 16:45 Comment Review of Relevant I have reviewed the following items radha (where applicable) has been applied. CAIT JONES MD Apr 16, 2016 14:54
== END 2016-04-16 15:10 | disposition home or self-care (01) ==
LOC: INTOOBSV 13:14 → 4 NORTH 13:14
PROVIDERS: ADMIT Internal Medicine; ATTEND Internal Medicine
DX: G43.919 Migraine, unspecified, intractable, without status migrainosus (principal); S00.93XA Contusion of unspecified part of head, initial encounter; F31.9 Bipolar disorder, unspecified; F41.9 Anxiety disorder, unspecified; G89.29 Other chronic pain; I10 Essential (primary) hypertension; X58.XXXA Exposure to other specified factors, initial encounter; Y92.89 Other specified places as the place of occurrence of the external cause; Y93.89 Activity, other specified; Y99.8 Other external cause status; Z91.81 History of falling; Z79.899 Other long term (current) drug therapy
CPT/HCPCS: 36415; 70553; 80053; 85027; 85651; 96374; G0378; G0379; G0481; A9585

== ENCOUNTER → 2016-09-23 | Outpatient (CLI) | payer OTHER ==
[~2016-09-23] MED LIST changes: -BENZ200C39 PO; +BENZ200C47 PO; +DICL100T PO; -ESCI20TA10 PO; +ESTR1TAB15 PO; +LEVO125T PO; +LEXAPRO20 MG PO; +LISI-334 PO; +LOSA50TA6 PO; +MELA3TAB2 PO; +MELO7.5T29 PO; +NABU500T PO; +SERT100T PO; +SUMA100T3 PO; +TOPI25TA52 PO
== END | disposition home or self-care (01) ==
LOC: SURGPAT 10:05
PROVIDERS: ATTEND Neurological Surgery
DX: M54.16 Radiculopathy, lumbar region (principal)
CPT/HCPCS: 36415; 87641

== ENCOUNTER 2016-09-29 11:12 | Day surgery (SDC) | payer OTHER ==
[~2016-09-29 11:12] MED LIST changes: +BACITRACIN 50,000 UNIT in IV NORMAL SALINE 1000ML BAG 1,000 ML IRR ONE; +BUPIVAC MPF-EPI 0.5%-1:200000 30 ML VIAL. ONE; +BUPIVACAINE MPF 0.5% 30 ML VIAL. ONE; +DEXAMETHASONE SOD PHOS 20 MG/5 ML VIAL. ONE; +GELATIN SPONGE SIZE 100. ONE; +IV RINGERS,LACTATED 1000ML 1,000 ML IV SCH; +LIDOCAINE 1% 1 ML SYRINGE. ID PRN; +LIDOCAINE 2% PF Vial for OR 5 ML VIAL. ONE; +ONDANSETRON PF 4 MG/2 ML VIAL. IV PRN; +ONDANSETRON PF 4 MG/2 ML VIAL. ONE; +PHENYLEPHRINE in 0.9% NACL PF 1 MG/10 ML DISP.SYRIN. IV ONE; +PROCHLORPERAZINE 10 MG/2 ML VIAL. IV PRN; +PROPOFOL 20 ML IV ONE; +PROPOFOL 50 ML IV ONE; +REMIFENTANIL 2 MG VIAL. IV ONE; +THROMBIN TOPICAL 20,000 UNIT SPRAY.SYRN KIT TP ONE; +ePHEDrine PF IN SALINE 50 MG/5 ML DISP.SYRIN IV ONE; +fentaNYL PF VIAL 100 MCG/2 ML VIAL IV PRN; +fentaNYL PF VIAL 100 MCG/2 ML VIAL ONE
[2016-09-29 12:14] LABS: INR 1.1 (0.8-1.1); PROTHROMBIN TIME PATIENT 13.3 SEC (11.7-14.0)
[2016-09-29] MEDS ORDERED: MINERAL OIL/PETROLATUM,WHITE OPHTH OINT 3.5GM TUBE. ONE (12:17)
[2016-09-29] MEDS ORDERED: MIDAZOLAM HCL/PF 2 MG/2 ML VIAL. ONE (12:19)
[2016-09-29] MEDS ORDERED: PROPOFOL 50 ML IV ONE (14:30)
[2016-09-29] MEDS ORDERED: PROCHLORPERAZINE 10 MG/2 ML VIAL. ONE (15:03)
[2016-09-29] MEDS ORDERED: fentaNYL PF VIAL 100 MCG/2 ML VIAL ONE ×2 (15:03→15:22)
--- NOTE | 2016-09-29 15:16 | DISCH ---
DISCHARGE INSTRUCTIONS Condition on Discharge Condition on Discharge: Stable Activity After Discharge Activity Instructions for Disc: Avoid exertion, Progressive ambulation, Other, see below (no lifting more than 10lbs; avoid strenuous activity; no excess twisting or bending) Lifting Instructions after Dis: Do not lift >10 pounds Driving Instructions after Dis: No driving for 2 weeks Wound Incision Care Wound/Incision Care: Ice to area for comfort, Other, see below (may remove dressing day 3 after surgery; keep incision clean and dry; do not soak, scrub, or submerge incision) Contacting the after DC Call your doctor for: Concerns you may have Follow-Up Follow up with: Dr. Powell, neurosurgery, in two weeks [phone] ALEXIS POWELL MD Sep 29, 2016 15:16
[2016-09-29] MEDS: fentaNYL PF VIAL 100 MCG/2 ML VIAL IV PRN ×4 (15:25→16:06)
--- NOTE | 2016-09-29 15:25 | PDOC ---
BRIEF OPERATIVE NOTE Date: Sep 29, 2016 Pre-Op Diagnosis lumbar disk herniation, lumbar radiculopathy Post-Op Diagnosis same Procedure Performed left L2-3 hemilaminotomy with discectomy Surgeon Yuli Supervisor Vacuum Metalizing none Anesthesiologist Susy Anesthesia Type: General Blood Loss 20mL Specimens Obtained disk and decompression Findings prominent disk herniation on the left L2-3 with mass effect on the adjacent neural elements, neuromonitoring at least baseline with some reported improvement at the completion of the procedure Complications none apparent ALEXIS POWELL MD Sep 29, 2016 15:25
[2016-09-29] MEDS ORDERED: OXYC-323 PO ×2 (15:33→15:38)
[2016-09-29] MEDS ORDERED: METH-38 PO ×2 (15:34→15:37)
[2016-09-29] MEDS ORDERED: SENN8.6T11 PO (15:35)
[2016-09-29] MEDS ORDERED: SENN1TAB7 PO (15:37)
[2016-09-29] MEDS ORDERED: oxyCODONE/APAP 5/325 1 TAB TABLET PO ONE (16:00)
[2016-09-29 16:16] VITALS: BP 121/77
[2016-09-29] MEDS ORDERED: ACYCLOVIR 200 MG CAPSULE. PO SCH (17:00)
[2016-09-29] MEDS ORDERED: LOSARTAN POTASSIUM 50 MG TABLET. PO SCH (17:00)
[2016-09-29] MEDS ORDERED: DICLOFENAC SODIUM 25 MG TABLET.DR PO SCH (21:00)
[2016-09-30] MEDS ORDERED: LEVOTHYROXINE 125 MCG TABLET PO SCH (07:00)
--- NOTE | 2016-09-30 11:40 | OP ---
DATE OF SURGERY: 09/29/2016 SURGEON: Emerson Powell MD. MARINE CARGO SPECIALIST: None. PREOPERATIVE DIAGNOSIS: Herniated disk on left at lumbar 2-3 with lumbar radiculopathy. POSTOPERATIVE DIAGNOSIS: Herniated disk on left at lumbar 2-3 with lumbar radiculopathy. PROCEDURE: Left lumbar 2-3 hemilaminotomy with diskectomy. ANESTHESIA: General. COMPLICATIONS: None intraprocedurally. INDICATIONS FOR THE PROCEDURE: The patient is a 46-year-old female with paresthesia and radiculopathy related to a herniated disk on the left at lumbar 2-3. She has been refractory to multiple nonsurgical treatments. It was felt that surgical decompression may be of benefit. Please refer to the patient's chart for additional details. DESCRIPTION OF PROCEDURE: After informed consent was obtained, the patient was brought into the operating room. She was placed under general anesthesia. She was placed in prone position on Enri frame. Neuro monitoring was instituted and baseline potentials were obtained. All pressure points were checked and padded appropriately. The lumbar region was prepped and draped in the usual sterile fashion. An incision location was localized with fluoroscopy prior to the initiation of the procedure. A vertical incision centered over the region of lumbar 2-3 was made with a 10 blade scalpel. Monopolar electrocautery was utilized to dissect the avascular midline to the spinous processes of lumbar 2, lumbar 3, and leftward across the lamina at this location. The level was again verified with fluoroscopy prior to the initiation of decompression. A hemilaminotomy was performed on the left at lumbar 2-3 with a pneumatic drill as well as a Kerrison rongeur. The underlying ligament was dissected free from the neural elements with a Acadia and a blunt nerve hook and removed with a Kerrison rongeur. The underlying neural elements were gently retracted medially and a prominent annulus was identified. The annulus was cauterized with bipolar electrocautery and a small annulotomy was performed at lumbar 2-3 with an 11 blade scalpel. Disk material emerged under pressure and was removed in a piecemeal fashion with a pituitary rongeur. Additional disk material was gently teased posterolaterally and removed with pituitary rongeur. Upon completion of diskectomy, the adjacent neural elements were noted to be very well decompressed. This was verified with direct visualization as well as gentle palpation with a Hola and a Jurado ball. It was also noted that neuro monitoring potentials were somewhat improved compared to baseline at this location. Pristine hemostasis was achieved with generous irrigation and some minimal use of bipolar electrocautery. Also the wound was generously irrigated with antibiotic irrigation prior to final closure. The muscles and fascia were then reapproximated with 0 Vicryl in a simple interrupted fashion. Subcutaneous tissues were reapproximated with 2-0 Vicryl in an interrupted inverted fashion and the skin was reapproximated with 4-0 Vicryl in a running subcuticular fashion. Mastisol and Steri-Strips were applied and the wound was dressed with Telfa and Tegaderm. At the end of procedure, all needle and sponge counts were correct x 2. The patient was extubated in the operating room and taken to recovery in stable condition. There were no intraprocedural complications apparent. EMERSON POWELL MD DR: NATALEE/sully JOB#: [id number] / [id number]
--- NOTE | 2016-10-01 16:43 | PATHOLOGY ---
PATHOLOGY REPORT * * * * * * * * FINAL DIAGNOSIS: Segments of fibrocartilaginous tissue and bone, lumbar disc and decompression: - Degenerative changes of fibrocartilaginous tissue. COMMENT: There is no evidence of an acute inflammatory process or malignancy. (JPM:mgr; 10/01/2016) REPORT ELECTRONICALLY SIGNED BY: Quan Joyner M.D. DATE/TIME: 10/01/2016 16:42 * * * * * * * * GROSS PATHOLOGY: Received in formalin labeled "Chapis Foreman, lumbar disc and decompression" are multiple segments of danielle, rubbery, and gritty tissue admixed with bone. The specimen measures 2.8 x 2.5 x 0.5 cm in aggregate dimensions. The tissue is submitted entirely in cassette A1, following decalcification. (JPM; 09/30/16) INITIAL CPT CODE(S): A; 81404, 44847 Professional services performed [place] [facility] [place] [address] Technical services performed by [facility] at [address] [place] [address]. SPECIMEN(S) RECEIVED: A.Lumbar disc and decompression CLINICAL HISTORY: Lumbar radiculopathy PATIENT: CHAPIS FOREMAN /AGE: 1202/07/1970 (Age: 46) PATIENT #: [id number] ALT CASE #: SPECIMEN COLLECTION DATE: 09/29/2016 SPECIMEN RECEIVED DATE: 09/30/2016 [facility] - [address] [place] [address] - PHONE: [phone] * * * END OF REPORT * * *
== END 2016-09-29 16:38 | disposition home or self-care (01) ==
LOC: SURG 11:12
PROVIDERS: ATTEND Neurological Surgery
DX: M51.16 Intervertebral disc disorders with radiculopathy, lumbar region (principal); I10 Essential (primary) hypertension; K21.9 Gastro-esophageal reflux disease without esophagitis; E66.9 Obesity, unspecified; Z68.42 Body mass index [BMI] 45.0-49.9, adult; E03.9 Hypothyroidism, unspecified; M19.90 Unspecified osteoarthritis, unspecified site; F41.9 Anxiety disorder, unspecified; F32.9 Major depressive disorder, single episode, unspecified; Z90.710 Acquired absence of both cervix and uterus; Z86.69 Personal history of other diseases of the nervous system and sense organs; Z87.440 Personal history of urinary (tract) infections; Z87.39 Personal history of other diseases of the musculoskeletal system and connective tissue; Z86.14 Personal history of Methicillin resistant Staphylococcus aureus infection; Z88.1 Allergy status to other antibiotic agents; Z91.048 Other nonmedicinal substance allergy status; Z79.01 Long term (current) use of anticoagulants
CPT/HCPCS: 36415; 63030; 76000; 85610; 85730; J0780; J1100; J2250; J2370; J2405; J2704; J3010; J3490; J7030; J7120; J2001